=== PATIENT | male | born 1960 | race Caucasian/White ===

== ENCOUNTER → 2018-01-18 | Outpatient (CLI) | payer SELFPAY ==
--- NOTE | 2018-01-18 14:42 | RADIOLOGY IMAGING REPORT ---
[place] [facility] [place] NAME: Stephen Raines : 1960 MR: [id number] V: [id number] EXAM DATE: ORDERING PHYSICIAN: VANESSA MILLER TECHNOLOGIST: Location: [facility] - [place] Patient: Stephen Raines : 1960 Visit/Account:[id number] Date of Sevice: 01/18/2018 Exam type: LUMBAR SPINE 2 OR 3 VIEW History: Low back pain with left lower extremity pain Comparison: None. Findings: There are five nonrib-bearing lumbar-type vertebral bodies present. There is a dextroconvex scoliosi s of the thoracal lumbar spine. Extensive marginal osteitis are seen throughout the visualized lower thoracic spine and the lumbar spine. There is a moderate compression fracture of T12 and a mild com pression fracture of L1 and L2. Extensive vascular calcifications are noted in the abdominal aorta. Sclerotic changes are seen over the inferior aspect the right SI joint IMPRESSION: 1. Scoliosis of the thoracal lumbar spine and extensive spondylotic changes as detailed above. Also noted is a moderate compression fracture T12 mild compression fractures of L1 and L2. Report Dictated By: Jazzmine Walker MD at 01/18/2018 2:34 PM Report E-Signed By: Jazzmine Walker MD at 01/18/2018 2:37 PM WSN:[email or web address]
== END ==
LOC: RAD 10:33
PROVIDERS: ATTEND Nurse Practitioner Family
DX: M41.85 Other forms of scoliosis, thoracolumbar region (principal); M47.895 Other spondylosis, thoracolumbar region; I70.0 Atherosclerosis of aorta; M48.56XA Collapsed vertebra, not elsewhere classified, lumbar region, initial encounter for fracture
CPT/HCPCS: 72100